=== PATIENT | male | born 1990 | race Two or more races ===

== ENCOUNTER 2021-05-31 14:31 | Inpatient (IN) | payer MEDICAID, OTHER ==
[~2021-05-31] VITALS: Ht 175.3 cm; Wt 102.1 kg
[~2021-05-31 14:31] MED LIST: HYDR-4354; QUET25TA PO; TRAZ-252 PO
--- NOTE | 2021-05-31 14:50 | NUR ---
BIB RA 839 FROM [facility] AFTER HE SWALLOWED THE HANDLE OF A PLASTIC SPOON 35 MINUTES, HE IS AN IN-PATIENT. THE PATIENT RATES ABDOMINAL PAIN 5/10. ABDOMEN NON-DISTENDED. IN ROOM AIR AND DENIES SOB. RESPIRATION REGULAR AND UNLABORED. WILL CONTINUE TO MONITOR THE PATIENT.
[2021-05-31] MEDS ORDERED: IV NS 0.9% 1,000 ML BAG IV ONE (15:00)
[2021-05-31] MEDS ORDERED: ONDANSETRON HCL/PF 4 MG/2 ML VIAL IV ONE (15:00)
[2021-05-31] MEDS ORDERED: ONDANSETRON HCL/PF 4 MG/2 ML VIAL ONE (15:02)
[2021-05-31 15:18] LABS: BASOPHILS # (AUTO) 0.1 K/uL (0.0-0.2); BASOPHILS % (AUTO) 0.7 % (0.0-2.0); HEMATOCRIT 42 % (39-51); HEMOGLOBIN 13.9 g/dL (13.5-17.5); LYMPHOCYTES # (AUTO) 2.2 K/uL (0.8-4.8); LYMPHOCYTES % (AUTO) 23.7 % (20.0-44.0); MEAN CORPUSCULAR HGB CONC 33 g/dl (31.0-36.0); MEAN CORPUSCULAR VOLUME 91 fL (80-96); MONOCYTES % (AUTO) 10.6 % (2.0-12.0); NEUTROPHILS # (AUTO) 5.8 K/uL (1.8-8.9); PLATELET COUNT (AUTO) 347 K/uL (150-450); RED BLOOD CELL COUNT(AUTO) 4.65 MIL/uL (4.5-6.0); WHITE BLOOD COUNT (AUTO) 9.2 K/uL (4.3-11.0)
[2021-05-31] MEDS ORDERED: ZIPR40CA2 PO (15:21)
[2021-05-31] MEDS ORDERED: DIVA-78 PO (15:21)
[2021-05-31] MEDS ORDERED: BUSP5TAB3 PO (15:21)
[2021-05-31] MEDS ORDERED: ALPR2TAB2 PO (15:21)
[2021-05-31] MEDS ORDERED: WELLBUTRIN (15:21)
[2021-05-31 15:40] LABS: CALCIUM, SERUM 8.8 mg/dL (8.5-10.1); CREATININE 0.7 mg/dL (0.6-1.3); POTASSIUM 4.5 mmol/L (3.5-5.1)
[2021-05-31] MEDS ORDERED: IOHEXOL-300 100 ML VIAL IV ONE (15:51)
[2021-05-31] MEDS ORDERED: IV NS 0.9% 250 ML IV ONE (15:51)
--- NOTE | 2021-05-31 15:55 | NUR ---
MOVE SHEET SUBMITTED AND CALLED FOR BED.
--- NOTE | 2021-05-31 17:03 | NUR ---
[facility] CALLED ICER HAND PAGED.
[2021-05-31] MEDS ORDERED: ONDANSETRON HCL/PF 4 MG/2 ML VIAL IVP PRN (19:30)
--- NOTE | 2021-05-31 20:04 | NUR ---
TELE 102
--- NOTE | 2021-05-31 20:11 | NUR ---
REPORT GIVEN TO TANYA BRAVO FOR ALIE
--- NOTE | 2021-05-31 20:46 | NUR ---
PT TRANSFERED PER ACLS PROTOCOL
[2021-05-31 20:54] VITALS: BP 124/66
--- NOTE | 2021-05-31 21:00 | NUR ---
ADMISSION 31 Y/O male admitted for Foreign body, patient is A/O x4. Skin checked done, skin intact, patient with healed tattoo in his right leg, right arm and right side of his face. Oriented to room, unit, staff. Admission process completed. Patient with mental concern, states voices telling him to hurt himself and others with sharp objects. Safety precaution initiated, sitter at bedside, environmental room safety checked. Psych and social media marketing specialist/service consult placed.
[2021-05-31] MEDS: IV D5/0.45 NACL 1,000 ML IV PRN (21:37)
[2021-06-01] VITALS: BP 134/64
[2021-06-01 04:00] VITALS: BP 125/69
--- NOTE | 2021-06-01 04:22 | NUR ---
CONSENT EGD Patient consented procedure EGD. Procedure check list completed.
[2021-06-01 04:39] LABS: BASOPHILS # (AUTO) 0.1 K/uL (0.0-0.2); BASOPHILS % (AUTO) 0.7 % (0.0-2.0); EOSINOPHILS % (AUTO) 3.5 % (0.0-6.0); HEMATOCRIT 41 % (39-51); HEMOGLOBIN 13.8 g/dL (13.5-17.5); LYMPHOCYTES # (AUTO) 1.9 K/uL (0.8-4.8); LYMPHOCYTES % (AUTO) 26.1 % (20.0-44.0); MEAN CORPUSCULAR HGB CONC 34 g/dl (31.0-36.0); MEAN CORPUSCULAR VOLUME 91 fL (80-96); MONOCYTES # (AUTO) 0.8 K/uL (0.1-1.30); MONOCYTES % (AUTO) 11.8 % (2.0-12.0); NEUTROPHILS # (AUTO) 4.1 K/uL (1.8-8.9); NEUTROPHILS % (AUTO) 57.9 % (43.0-81.0); PLATELET COUNT (AUTO) 319 K/uL (150-450); RED BLOOD CELL COUNT(AUTO) 4.51 MIL/uL (4.5-6.0); WHITE BLOOD COUNT (AUTO) 7.1 K/uL (4.3-11.0)
[2021-06-01] MEDS ORDERED: ANESTHESIA TRAY IN PYXIS 1 EA TRAY MC ONE (04:40)
--- NOTE | 2021-06-01 04:42 | NUR ---
OFF UNIT Patient to OR for procedure EGD, transferred by bed.
[2021-06-01] MEDS ORDERED: SUCCINYLCHOLINE CHLORIDE 20 MG/ML VIAL ONE (04:57)
[2021-06-01 04:58] LABS: CALCIUM, SERUM 8.5 mg/dL (8.5-10.1); CREATININE 0.8 mg/dL (0.6-1.3); MAGNESIUM 2.1 mg/dL (1.8-2.4); PHOSPHORUS 3.2 mg/dL (2.5-4.9); POTASSIUM 4.3 mmol/L (3.5-5.1)
[2021-06-01] MEDS ORDERED: MENTHOL/CETYLPYRD (CEPACOL) 1 LOZ LOZENGE ONE (06:01)
[2021-06-01 06:28] VITALS: BP 130/86
--- NOTE | 2021-06-01 06:50 | NUR ---
END OF SHIFT REPORT Patient s/p EGD. Remains NPO. Ongoing IVF. Plan for KUB. Patient with active suicidal thoughts, continue with sitter, frequent environmental room checked. Psyche consult and social media marketer consult.
[2021-06-01 06:55] VITALS: BP 124/80
--- NOTE | 2021-06-01 07:10 | NUR ---
MS RN OPENING NOTE RECEIVED PATIENT RESTING IN BED. PATIENT IS A/O X4. PATIENT IS BREATHING EVENLY AND NONLABORED ON ROOM AIR. PATIENT IS NOT IN ANY ACUTE DISTRESS. PATIENT DOES NOT COMPLAIN OF PAIN AT THIS TIME. PATIENT HAS IV ACCESS ON RAC # 18 GAUGE RUNNING D5 1/2 NS @ 75 ML/HR. PATENT AND INTACT. SAFETY MEASURES ARE IN PLACE, BED LOW LOCKED CALL LIGHT WITHIN REACH, SIDE RAILS UP, SITTER AT BEDSIDE DUE TO SI. WILL CONTINUE TO MONITOR
--- NOTE | 2021-06-01 08:08 | NUR ---
RN NOTE PATIENT COMPLAINED OF PAIN, MD AT BEDSIDE, GAVE NEW ORDER FOR MORPHINE 2MG Q4HRS PRN FOR SEVERE PAIN. WILL GIVE PRN PAIN MEDICATION. CONTINUE TO MONITOR
[2021-06-01] MEDS: MORPHINE SULFATE INJ 2 MG/ML DISP.SYRIN IV PRN ×4 (08:30→21:43)
[2021-06-01 08:52] VITALS: BP 124/80
[2021-06-01] MEDS: LORAZEPAM INJ 2 MG/ML VIAL IV PRN ×2 (09:17→15:21)
--- NOTE | 2021-06-01 09:21 | NUR ---
RN NOTE PATIENT COMPLAINED OF SEVERE ANXIETY AND HEARING VOICES, PATIENT ASKED FOR PRN ANTIANXIETY MEDICATION, PRN MEDICATION GIVEN. VITALS WNL. WILL CONTINUE TO MONITOR
[2021-06-01 10:23] LABS: ALBUMIN 3.4 g/dL (3.4-5.0); BILIRUBIN,DIRECT 0.1 mg/dL (0.0-0.2); BILIRUBIN,TOTAL 0.4 mg/dL (0.2-1.0); TOTAL PROTEIN, SERUM 6.5 g/dL (6.4-8.2)
--- NOTE | 2021-06-01 11:11 | NUR ---
Clinical Social Work Note Pt has a history of mental illness with stimulant dependence ( methamphetamines) and other polysubstancce abuse. He swallowed a spoon while intoxicated and the circumstances are not veery clear at the time. Patient does require surgery to remove the foreign body ( spoon). Patient is well known to [facility] ) but is far from medically stable for transfer there. Will reevaluate placement when patient is more stable.
[2021-06-01] MEDS: VALPROATE 250 MG in IV D5W 100 ML IV SCH ×3 (11:20→21:26)
[2021-06-01] MEDS: IV D5/0.45 NACL 1,000 ML IV PRN (11:34)
--- NOTE | 2021-06-01 15:15 | NUR ---
RN NOTE PATIENT COMPLAINED OF SEVERE ANXIETY AND HEARING VOICES, PATIENT ASKED FOR PRN ANTIANXIETY MEDICATION, PRN MEDICATION GIVEN. VITALS WNL. WILL CONTINUE TO MONITOR
--- NOTE | 2021-06-01 17:13 | NUR ---
RN NOTE PATIENT COMPLAINED OF SEVERE PAIN, VITALS WNL WILL GIVE PRN PAIN MEDICATION. CONTINUE TO MONITOR
--- NOTE | 2021-06-01 18:24 | NUR ---
MD DO RESIDENT URGENT CARE CLOSING NOTE PATIENT RESTING IN BED. PATIENT IS A/O X4. PATIENT IS BREATHING EVENLY AND NONLABORED ON ROOM AIR. PATIENT IS NOT IN ANY ACUTE DISTRESS. PATIENT DOES NOT COMPLAIN OF PAIN AT THIS TIME. PATIENT HAS IV ACCESS ON RAC # 18 GAUGE RUNNING D5 1/2 NS @ 75 ML/HR. PATENT AND INTACT. ALL MEDICATIONS GIVEN ORDERED. SAFETY MEASURES ARE IN PLACE, BED LOW LOCKED CALL LIGHT WITHIN REACH, SIDE RAILS UP, SITTER AT BEDSIDE DUE TO SI. WILL ENDORSE TO ONCOMING SHIFT
--- NOTE | 2021-06-01 19:35 | NUR ---
RN OPENING NOTES: RECEIVED PT A/OX4 IN BED RESTING COMFORTABLY. PATIENT IN NO S/SX OF ACUTE DISTRESS AT THIS TIME. NO SOB NOTED. PATIENT'S BREATHING IS EVEN AND UNLABORED. PATIENT IS ON ROOM AIR; TOLERATING WELL. WITH SITTER AT BEDSIDE. PATIENT ON TELE MONITORING READING SINUS RHYTHM HR IS @70s AT THE TIME OF RECEIVED. PATIENT ON REGULAR DIET; TOLERATES WELL. NOTED IV SITE ON R AC# 18; PATENT, INTACT AND FLUSHING WELL; NO S/S OF INFECTION OR INFILTRATION. WITH IV FLUIDS RUNNING ORDERED. SAFETY MEASURES HAVE BEEN PROVIDED AND IMPLEMENTED. PATIENT BED ALARM IS ON. HEAD OF BED ELEVATED. BED IS LOCKED, IN LOWEST POSITION AND SIDE RAILS UP. CALL LIGHT WITHIN REACH OF THE PATIENT. APPLICABLE ISOLATION PRECAUTIONS IN PLACE. WILL CONTINUE TO MONITOR AND REASSESS FOR ANY CHANGES AND WILL CARRY OUT ANY ONGOING AND ACTIVE MD ORDER.
[2021-06-01 20:00] VITALS: BP 130/72
[2021-06-02] VITALS (7 sets, daily range): BP systolic 110–119; BP diastolic 59–71
--- NOTE | 2021-06-02 | NUR ---
RN NOTES PATIENT REMAINED TO BE IN NO SIGNS OF ACUTE RESPIRATORY DISTRESS , VITAL SIGNS WNL AT THIS TIME. CONTROLLED AREA CHECKER MADE AWARE. WILL CONTINUE TO MONITOR AND REASSESS FOR ANY CHANGES THROUGHOUT THE SHIFT.
[2021-06-02] MEDS: LORAZEPAM INJ 2 MG/ML VIAL IV PRN ×2 (01:30→09:27)
--- NOTE | 2021-06-02 04:00 | NUR ---
RN NOTES NO NOTED CHANGES IN PATIENT CONDITION AT THIS TIME; PATIENT VITALS STABLE, NO SIGNS OF ACUTE RESPIRATORY DISTRESS. AM PATIENT CARE RENDERED. WILL CONTINUE TO MONITOR AND REASSESS FOR ANY CHANGES THROUGHOUT THE SHIFT.
[2021-06-02] MEDS: MORPHINE SULFATE INJ 2 MG/ML DISP.SYRIN IV PRN ×4 (04:03→23:11)
[2021-06-02] MEDS: VALPROATE 250 MG in IV D5W 100 ML IV SCH ×2 (04:03→13:35)
[2021-06-02] MEDS: IV D5/0.45 NACL 1,000 ML IV PRN ×2 (05:00→19:03)
--- NOTE | 2021-06-02 06:50 | NUR ---
RN CLOSING NOTE: PATIENT REMAINS IN ROOM IN NO SIGNS OF RESPIRATORY DISTRESS, PATIENT STILL ON ROOM AIR; TOLERATING WELL SATURATING @ >95% SP02. SAFETY MEASURES IMPLEMENTED, BED IN LOWEST POSITION, LOCKED, SIDE RAILS UP, CALL LIGHT WITHIN REACH. ALL NEEDS AND ORDERS ADDRESSED DURING THE SHIFT. IV ACCESS MAINTAINED INTACT, SECURED AND FLUSHING WELL. PATIENT KEPT CLEAN AND COMFORTABLE WITHIN THE SHIFT. PATIENT ENDORSED TO INCOMING SHIFT RN WITH STABLE VITAL SIGN AND FOR CONTINUITY OF CARE.
--- NOTE | 2021-06-02 07:15 | NUR ---
RN NOTE PATIENT OBSERVED IN BED, AWAKE AND ORIENTED X3, ON ROOM AIR BREATHING EVEN AND UNLABORED, WITH ONE ON ONE OBSERVATION, DX OF SWALLOWING FOREIGN OBJECT, WILL CLOSELY MONITOR PATIENT, IV ON RIGHT AC PATENT INFUSING WELL, NPO AT THIS TIME. SAFETY MEASURES OBSERVED, CALL LIGHT WITHIN REACH BED WHEELS LOCK, WILL CONTINUE TO MONITOR.
[2021-06-02] MEDS ORDERED: PEG 3350/NA SULF,BICARB,CL/KCL 4,000 ML BOTTLE PO ONE (08:30)
--- NOTE | 2021-06-02 11:00 | NUR ---
RN NOTE SEEN AND EVALUATED BY DR. GALLARDO, START ON CLEAR LIQUID DIET , PO MEDICATION OK AT THIS TIME, UPDATED MD REGARDING PATIENT CURRENT CONDITION.
--- NOTE | 2021-06-02 11:30 | NUR ---
RN NOTE START ON GLYOTEL PER DR. MELGAR.
[2021-06-02] MEDS: OLANZAPINE 5 MG TABLET PO SCH ×2 (16:07→20:33)
[2021-06-02] MEDS: DIVALPROEX SODIUM 500 MG TABLET.DR PO SCH (16:07)
--- NOTE | 2021-06-02 16:30 | NUR ---
RN NOTE SEEN BY DR. FAMILIA MD ORDERS NOTED AND CARRIED OUT.
--- NOTE | 2021-06-02 19:05 | NUR ---
RN NOTE PATIENT OBSERVED IN BED, AWAKE AND ORIENTED X3, ON ROOM AIR BREATHING EVEN AND UNLABORED, WITH ONE ON ONE OBSERVATION, DX OF SWALLOWING FOREIGN OBJECT, WILL CLOSELY MONITOR PATIENT, IV ON RIGHT AC D5 1/2 @75CC/HR PATENT INFUSING WELL, CLEAR LIQUID DIET AT THIS TIME, ON GOLYTEL ORDERED. SAFETY MEASURES OBSERVED, CALL LIGHT WITHIN REACH BED WHEELS LOCK, WILL CONTINUE TO MONITOR.
--- NOTE | 2021-06-02 19:06 | NUR ---
RN NOTE ON TELE MONITOR SR OF 71.
--- NOTE | 2021-06-02 20:00 | NUR ---
CHISELER HEAD NOTE PT IN BED AWAKE. A/O X 3, NO SOB NO DISTRESS OR DISCOMFORT NOTED. PT ON CLEAR LIQUIDS. REMINDED PT TO DRINK GOLYTELY. PER PT HE DRANK 5 -6 CUPS AND WANTS TO SLEEP NOW WILL DRINK IN THE MORNING DUE TO KEPT ON GOING TO RESTROOM. ON TELE SR 64. IVF D5 1/2 NS INFUSING AT 75 ML/HR, NO S/S OF INFILTRATION NOTED. KEPT HIM DRY AND CLEAN. ALL NEEDS ATTENDED. VSS. CONTINUE TO MONITOR.
[2021-06-03] VITALS: BP 112/67
[2021-06-03] MEDS: LORAZEPAM INJ 2 MG/ML VIAL IV PRN ×2 (03:10→11:15)
--- NOTE | 2021-06-03 03:11 | NUR ---
CAR TOP BOLTER NOTE PT WOKE UP C/O ANXIETY. ATIVAN 0.5 MG IVP GIVEN. CONTINUE TO MONITOR HIM.
--- NOTE | 2021-06-03 03:41 | NUR ---
TELEVISION CAMERAMAN NOTE ANXIETY SUBSIDED. PT FALLING ASLEEP. SITTER 1;1
[2021-06-03 04:00] VITALS: BP 124/67
[2021-06-03] MEDS: MORPHINE SULFATE INJ 2 MG/ML DISP.SYRIN IV PRN ×2 (05:33→19:49)
--- NOTE | 2021-06-03 05:40 | NUR ---
TAILOR APPRENTICE NOTE PT WOKE UP C/O PAIN ALL OVER 8/10, MORPHINE SULFATE 2 MG IVP GIVEN. IVF INFUSING WELL, NO S/S OF INFILTRATION NOTED.
[2021-06-03] MEDS: OLANZAPINE 5 MG TABLET PO PRN ×2 (05:59→11:15)
--- NOTE | 2021-06-03 06:00 | NUR ---
TOPOGRAPHIC COMPUTATOR NOTE PT IN BED, STATES "I HEARING VOICES", ZYPREXA 5 MG PO GIVEN. CONTINUE TO MONITOR HIM.
--- NOTE | 2021-06-03 06:10 | NUR ---
ECOLOGICAL TECHNICAL OFFICER NOTE PT IN BED, AWAKE. PAIN SUBSIDED. 11/15, IVF INFUSING WELL.
--- NOTE | 2021-06-03 06:43 | NUR ---
SHIFT MGR NOTE PT IN BED ASLEEP, EASILY AROUSABLE. NO DISTRESS OR DISCOMFORT NOTED. DENIES PAIN. IVF INFUSING WELL. NO S/S OF INFILTRATION NOTED. ON TELE SR . PT STILL DRINKING GOLYTELY. PT UNABLE TO SEE IF HE PASSED ANY FOREIGN BODY IN A STOOL. SIDE RAILS UP X 2 AND CALL LIGHT WITHIN REACH. WILL ENDORSE TO DAY SHIFT NURSE FOR CONTINUE TO CARE.
[2021-06-03 08:00] VITALS: BP 124/67
[2021-06-03] MEDS: OLANZAPINE 5 MG TABLET PO SCH ×2 (08:16→13:51)
[2021-06-03] MEDS: DIVALPROEX SODIUM 500 MG TABLET.DR PO SCH ×2 (08:16→17:10)
--- NOTE | 2021-06-03 09:11 | NUR ---
RN NOTE PATIENT OBSERVED IN BED, AWAKE AND ORIENTED X3, ON ROOM AIR BREATHING EVEN AND UNLABORED WITH ONE ON ONE OBSERVATION, DX OF SWALLOWING FOREIGN OBJECT, STATED THAT PATIENT IS HEARING VOICES, WILL CLOSELY MONITOR PATIENT, IV ON RIGHT AC PATENT INFUSING ON CLEAR LIQUID DIET, PATIENT TAKING GOLYTELY. SAFETY MEASURES OBSERVED, CALL LIGHT WITHIN REACH BED WHEELS LOCK, WILL CONTINUE TO MONITOR.
[2021-06-03] MEDS: IV D5/0.45 NACL 1,000 ML IV PRN ×2 (09:46→18:28)
[2021-06-03 12:00] VITALS: BP 122/60
--- NOTE | 2021-06-03 12:30 | NUR ---
RN NOTE NOTIFIED DR JOSE J CARPENTER THAT PATIENT IS HEARING VOICES AND THREATENS TO HURT HIMSELF, NOTIFIED DR. BARBOSA ORDERED, DR. BARBOSA CONSULTED THE PATIENT VIA FACETIME INCREASE DOSE AND DEPAKOTE, ORDERS NOTED AND CARRIED OUT.
--- NOTE | 2021-06-03 12:41 | NUR ---
RN NOTE PATIENT TO START ON REGULAR DIET PER ROLANDA CARPENTER,CONTINUE TO MONITOR FOR ABDOMINAL PAIN. NO ABDOMINAL PAIN COMPLAINS AT THIS TIME.
[2021-06-03 16:00] VITALS: BP 122/60
[2021-06-03] MEDS ORDERED: DIVALPROEX SODIUM 500 MG TABLET.DR PO ONE (17:30)
--- NOTE | 2021-06-03 18:42 | NUR ---
RN NOTE PATIENT OBSERVED IN BED, AWAKE AND ORIENTED X3, ON ROOM AIR BREATHING EVEN AND UNLABORED WITH ONE ON ONE OBSERVATION, DX OF SWALLOWING FOREIGN OBJECT, STATED THAT PATIENT IS HEARING VOICES, WILL CLOSELY MONITOR PATIENT, IV ON RIGHT HAND PATENT INFUSING D5 1/2 NS @100CC/HR ON REGULAR DIET TOLERATING WELL NO ABDOMINAL PAIN COMPLAINS AT THIS TIME, SP ROXY. SAFETY MEASURES OBSERVED, CALL LIGHT WITHIN REACH BED WHEELS LOCK, WILL CONTINUE TO MONITOR. WILL ENDORSE TO NOC SHIFT. Addendum: 06/03/21 at 1849 by STEVE NAIR RN RN NOTE PATIENT OBSERVED IN BED, AWAKE AND ORIENTED X3, ON ROOM AIR BREATHING EVEN AND UNLABORED WITH ONE ON ONE OBSERVATION, DX OF SWALLOWING FOREIGN OBJECT, STATED THAT PATIENT IS HEARING VOICES, WILL CLOSELY MONITOR PATIENT, IV ON RIGHT HAND PATENT INFUSING D5 1/2 NS @100CC/HR ON REGULAR DIET TOLERATING WELL NO ABDOMINAL PAIN COMPLAINS AT THIS TIME, ON TELE MONITOR SR HR OF 71. S/P ROXY. SAFETY MEASURES OBSERVED, CALL LIGHT WITHIN REACH BED WHEELS LOCK, WILL CONTINUE TO MONITOR. WILL ENDORSE TO NOC SHIFT.
[2021-06-03] MEDS: OLANZAPINE 10 MG TABLET PO SCH (19:48)
[2021-06-03 20:00] VITALS: BP 116/67
[2021-06-04] VITALS: BP 115/66
[2021-06-04] MEDS: LORAZEPAM INJ 2 MG/ML VIAL IV PRN ×2 (02:49→10:21)
[2021-06-04 04:00] VITALS: BP 138/71
[2021-06-04] MEDS: MORPHINE SULFATE INJ 2 MG/ML DISP.SYRIN IV PRN ×4 (05:26→18:55)
[2021-06-04 06:49] LABS: BASOPHILS % (AUTO) 0.6 % (0.0-2.0); EOSINOPHILS % (AUTO) 2.9 % (0.0-6.0); HEMATOCRIT 45 % (39-51); HEMOGLOBIN 14.7 g/dL (13.5-17.5); LYMPHOCYTES # (AUTO) 1.6 K/uL (0.8-4.8); LYMPHOCYTES % (AUTO) 30.3 % (20.0-44.0); MEAN CORPUSCULAR HGB CONC 33 g/dl (31.0-36.0); MEAN CORPUSCULAR VOLUME 92 fL (80-96); MONOCYTES % (AUTO) 19.3 % (2.0-12.0); NEUTROPHILS # (AUTO) 2.4 K/uL (1.8-8.9); NEUTROPHILS % (AUTO) 46.9 % (43.0-81.0); PLATELET COUNT (AUTO) 267 K/uL (150-450); WHITE BLOOD COUNT (AUTO) 5.2 K/uL (4.3-11.0)
--- NOTE | 2021-06-04 06:50 | NUR ---
Patient has been A&Ox4. VSS. Sitter at bedside. Denies abdominal pain but c/o generalized pain relieved by PRN [place]. C/o anxiety x1 relieved by PRN Ativan. At 0600 patient says he starts hearing voices telling him that he and his family are going to then starts accusing sitter of calling him "liu liu" sitter says he does not even know what that means and never called him that. Nurse trying to reassure patient that sitter was just watching him and did not say anything. Patient calm, down tem,porarily but then requested to have a different sitter. Endorsed to next shift.
[2021-06-04 07:36] LABS: CALCIUM, SERUM 9.2 mg/dL (8.5-10.1); CREATININE 0.7 mg/dL (0.6-1.3); MAGNESIUM 1.9 mg/dL (1.8-2.4); PHOSPHORUS 2.5 mg/dL (2.5-4.9)
[2021-06-04] MEDS: OLANZAPINE 5 MG TABLET PO SCH ×2 (07:46→12:27)
[2021-06-04] MEDS: DIVALPROEX SODIUM 500 MG TABLET.DR PO SCH (07:46)
[2021-06-04 08:00] VITALS: BP 133/82
[2021-06-04 09:42] LABS: BAND % (MANUAL) 2 % (0.0-5.0); EOSINOPHILS % (MANUAL) 4 % (0-4); LYMPHOCYTES % (MANUAL) 30 % (16-48); MONOCYTES % (MANUAL) 18 % (0-11.0); NEUTROPHILS % (MANUAL) 46 (42-76)
--- NOTE | 2021-06-04 11:45 | NUR ---
SS consult: SS consult requested for homelessness and substance use. Pt is a 31-year-old, male. SW met with pt at his bedside in the med-surg unit. Pt presented with a depressed mood and anxious affect. Pt was alert and oriented x4. Pt appeared ambulatory with a steady gait. Pt stated that he is currently homeless and has been homeless for the last month. Pt stated that he was recently at [facility], [place]. Pt requested voluntary psychiatric admission to [facility], for suicidal ideation. Pt stated that he had "smashed" his head into the wall. Pt stated that he has a plan to take a sharp object to the restroom and cut his wrists. Pt denied homicidal ideation. Pt stated that he currently has no source of income or social support. Pt stated that he has a hx of substance use which includes, methamphetamine, cannabis, and alcohol. Pt stated that he uses these substances on a weekly basis. Pt reported a hx of Bipolar II Disorder and Depression. Pt reported that he is currently taking, Depakote, Zyprexa, and Wellbutrin. Pt reported that he has a hx of paranoid thoughts. Pt denied hallucinations. SW offered the pt mental health, substance use, and homeless resources. Pt accepted the resources and thanked SW. Pt signed the homeless waiver and SW filed the waiver in the pt's chart. Pt requested voluntary psychiatric admission to [facility]. SW will fax clinicals to [facility], , for review. PLAN: Pt requested voluntary psychiatric admission to [facility]. SW will fax clinicals to [facility], , for review. RESOURCES: Year-round shelters: [facility] [address] [place] [address] ; [facility] [place] [address]; [facility] [id number] [facility]. [facility] [address] SPA 4 | [facility] [place] Provider: First to Serve Address: [address], [address] # of Beds: 48 Population Served: [facility] Provider: First to Serve Address: [address] [place] [address], [address] # of Beds: 73 Population Served: [place] SPA 6 | [facility] Provider: [facility]: [address] [facility], [address] # of Beds: 63 Population Served: [place] SPA 3 | [facility] Provider: [facility] [place] Address: [address] [facility], [address] # of Beds: 75 Population Served: [place] SPA 8 | [facility] Provider: [facility] [place] Address: [address] [facility], [address] # of Beds: 80 Population Served: [place] SPA 1 | [facility] Provider: [facility] [place] Address: [address] [place] [address], [address] # of Beds: 85 Population Served: [facility] | [facility] Provider: [facility] Address: Confidential (please call for location) # of Beds: 52 Population Served: [facility] 4 | [facility] Provider: [facility] Address: [address] [facility], [address] # of Beds: 49 Population Served: [facility] Provider: First To Serve Address: [address] [place] [address], [address] # of Beds: 27 Population Served: [place] Hygiene: [facility]: [address] [address] [place]annan ; [facility] [address] [facility] ; [facility] [address] . Food Resources: [place] [facility] at [facility]- [address] [place]; Meet Each Need with [facility] ([facility]) [address] [facility]; [facility] [address] [facility]; [facility] [address] [place] [facility] [place]. Mental Health resources provided: [facility] [address] [place], [place] [address] ; [facility] [address] [facility] [address], [place] [address] ; [facility] [address] [facility] [place], [place] [id number] ; [facility] [address] [place], [place] [address] Healthcare Clinics: [facility] [address] [facility], [address] [place]. [place] ; [facility] [address] [place] [address] [facility] [address] [facility] [place] [address] [phone] Counseling--Outpatient [facility] [address], [address] [place], [place] [phone] (Specializes in in-depth psychotherapy for emotional distress: anxiety, depression, interpersonal conflicts, life transitions, childhood abuse) PSYCHIATRIC OUTPATIENT SERVICES [facility] Partial Hospitalization and Intensive Outpatient Program (Managed Care and [place] Only) [address] [facility] [id number] [facility] Partial Hospitalization and Outpatient Program [address] [address] [facility]. [address] [place], [place] [id number] [facility] Partial Hospitalization and Outpatient Program [address] [facility]. [place], [place] [phone] [facility] [address] [facility]. [address] [place], [place] [address] [facility] Partial Hospitalization and Outpatient Program [address] [place], [place] [phone] Substance use resources provided included: [place] [facility] Abuse Self-Helpline (SAS) ; [facility] [address] [facility] 915951 ; [facility] [address] [facility] [address] ; [facility] [address] [facility] [phone] ; [facility] [address] [facility] [address] ; [facility] [address] [facility] [phone] ; [facility] [place]; [facility] [place]; [place]; Alcoholics Anonymous -[facility]
--- NOTE | 2021-06-04 11:50 | NUR ---
SS note: ARCADIO faxed clinicals to [facility], , for review.
[2021-06-04 12:00] VITALS: BP 127/79
--- NOTE | 2021-06-04 14:27 | NUR ---
RN NOTE PATIENT SEEN BY DR. BARBOSA, NO NEW ORDERS AT THIS TIME.
--- NOTE | 2021-06-04 15:18 | NUR ---
RN NOTE NOTIFIED DR. BARBOSA THAT PATIENT WANT TO START TAKING WELLBUTRIN, MD SAID NO, NOTIFIED DR TUNDE CARPENTER REGARDING CURRENT SITUATION THAT PATIENT WANTS TO LEAVE AGAINS MEDICAL ADVICE BECAUSE HE IS NOT BEING MEDICATED, PATIENT REFUSED TO SIGN AMA AND WANTS TO COOPERATED AND BE TREATED HERE. DR. HARSHA CARPENTER AND DR. BARBOSA MADE AWARE.
[2021-06-04 16:00] VITALS: BP 132/81
[2021-06-04] MEDS: OLANZAPINE 5 MG TABLET PO PRN (16:36)
[2021-06-04] MEDS ORDERED: DIVALPROEX SODIUM 500 MG TABLET.DR PO SCH (17:00)
--- NOTE | 2021-06-04 19:02 | NUR ---
RN NOTE PATIENT VTS WNL AWAKE AND ORIENTED, ON CLOSE MONITORING SAFETY MEASURES OBSERVED, CALL LIGHT WITHIN REACH, WILL CONTINUE TO MONITOR WILL ENDORSE TO NOC SHIFT.
--- NOTE | 2021-06-04 19:38 | NUR ---
MS RN NOTE PT IN BED ASLEEP, AROUSABLE. DENIES PAIN, A/O X 3, NO SOB, NO DISTRESS OR DISCOMFORT NOTED. SL LT HAND #22 G. INTACT AND PATENT. NO PSYCH BEHAVIOR NOTED AT THIS TIME. SIDE RAILS UP X 2 AND CALL LIGHT WITHIN REACH. VSS. CONTINUE TO MONITOR HIM.
--- NOTE | 2021-06-04 19:47 | NUR ---
FORKLIFT DRIVER NOTE PT ON TELE MONITOR SR 90.
[2021-06-04 20:00] VITALS: BP 107/59
[2021-06-04] MEDS: OLANZAPINE 10 MG TABLET PO SCH (20:51)
[2021-06-05] VITALS: BP 110/57
[2021-06-05 04:00] VITALS: BP 129/59
--- NOTE | 2021-06-05 04:37 | NUR ---
MS RN NOTE PT PULLED OUT SL FROM LT HAND ACCIDENTLY, NO BLEEDING NOTED. REFUSING TO REINSERT NEW ONE AT THIS TIME. WILL TRY LATER. SNACKS GIVEN PER PT'S REQUEST. CONTINUE TO MONITOR
--- NOTE | 2021-06-05 06:33 | NUR ---
MS RN NOTE PT IN BED DROWSY, NO DISTRESS OR DISCOMFORT NOTED. DENIES PAIN. ALL NEEDS ATTENDED. ON TELE MONITOR SR 80. WILL ENDORSE TO DAY SHIFT NURSE FOR CONTINUE TO CARE.
[2021-06-05 06:51] LABS: BASOPHILS % (AUTO) 0.5 % (0.0-2.0); EOSINOPHILS % (AUTO) 3.8 % (0.0-6.0); HEMATOCRIT 43 % (39-51); HEMOGLOBIN 13.8 g/dL (13.5-17.5); LYMPHOCYTES # (AUTO) 1.6 K/uL (0.8-4.8); LYMPHOCYTES % (AUTO) 28.8 % (20.0-44.0); MEAN CORPUSCULAR HGB CONC 32 g/dl (31.0-36.0); MEAN CORPUSCULAR VOLUME 92 fL (80-96); MONOCYTES % (AUTO) 17.9 % (2.0-12.0); NEUTROPHILS # (AUTO) 2.8 K/uL (1.8-8.9); PLATELET COUNT (AUTO) 270 K/uL (150-450); RED BLOOD CELL COUNT(AUTO) 4.66 MIL/uL (4.5-6.0); WHITE BLOOD COUNT (AUTO) 5.7 K/uL (4.3-11.0)
[2021-06-05] MEDS: OLANZAPINE 5 MG TABLET PO SCH ×2 (07:41→12:08)
[2021-06-05 07:50] LABS: ALBUMIN 3.3 g/dL (3.4-5.0); BILIRUBIN,TOTAL 0.3 mg/dL (0.2-1.0); CALCIUM, SERUM 8.7 mg/dL (8.5-10.1); CREATININE 0.9 mg/dL (0.6-1.3); POTASSIUM 4.1 mmol/L (3.5-5.1); TOTAL PROTEIN, SERUM 6.9 g/dL (6.4-8.2)
[2021-06-05 08:00] VITALS: BP 130/75
[2021-06-05] MEDS: DIVALPROEX SODIUM 500 MG TABLET.DR PO SCH (08:00)
--- NOTE | 2021-06-05 08:00 | NUR ---
telephone lineman note patient in bed ,alert oriented ,new hl on lt ac susanne 22 inserted with good blood return, able to eat breakfast, all needs attended ,morphine for general pain given as ordered, will cont to monitor closely
[2021-06-05] MEDS: MORPHINE SULFATE INJ 2 MG/ML DISP.SYRIN IV PRN ×3 (08:07→15:55)
[2021-06-05] MEDS: LORAZEPAM INJ 2 MG/ML VIAL IV PRN ×2 (09:48→15:48)
[2021-06-05 09:59] LABS: EOSINOPHILS % (MANUAL) 2 % (0-4); LYMPHOCYTES % (MANUAL) 33 % (16-48); MONOCYTES % (MANUAL) 12 % (0-11.0); NEUTROPHILS % (MANUAL) 53 (42-76)
--- NOTE | 2021-06-05 10:17 | NUR ---
[facility] Referral: ARCADIO refaxed clinicals to [facility] FAX:[phone] TEL: [phone] for continuation of psychiatric care. ARCADIO will follow up as needed.
--- NOTE | 2021-06-05 12:19 | NUR ---
D/C PLANNING: ARCADIO received call from [facility] Intake requesting chest x rays. SW faxed xrays to [facility].
[2021-06-05] MEDS: OLANZAPINE 5 MG TABLET PO PRN (13:53)
--- NOTE | 2021-06-05 13:55 | NUR ---
MS RN NOTE AGITATED AND ANXIETY ZYPREXA PO GIVEN WILL F\U
--- NOTE | 2021-06-05 15:25 | NUR ---
telephone directory deliverer note per Dale white to discharge report given to facility by Anneliese hurtado to ishaan hurtado
[2021-06-05 16:00] VITALS: BP 140/87
--- NOTE | 2021-06-05 16:09 | NUR ---
ms rn note ambulance arrived , report given hl removed , went to snf with stable condition belonging taken by patient
== END 2021-06-05 16:24 | DRG 254 ==
LOC: ER 14:49 → MEDSG1 20:40 → TELE1 20:59 → MEDSG1 06-05 08:40
PROVIDERS: ADMIT Internal Medicine; ATTEND Nurse Practitioner Acute Care
PROC: 0DJ08ZZ Inspection of Upper Intestinal Tract, Via Natural or Artificial Opening Endoscopic (ICD-10-PCS; principal; 2021-06-01)
DX: T18.2XXA Foreign body in stomach, initial encounter (principal); F25.9 Schizoaffective disorder, unspecified; K29.70 Gastritis, unspecified, without bleeding; Z20.822 Contact with and (suspected) exposure to COVID-19; X58.XXXA Exposure to other specified factors, initial encounter; Y93.9 Activity, unspecified; F41.9 Anxiety disorder, unspecified; F32.9 Major depressive disorder, single episode, unspecified; F29 Unspecified psychosis not due to a substance or known physiological condition; F15.90 Other stimulant use, unspecified, uncomplicated; Y92.89 Other specified places as the place of occurrence of the external cause
CPT/HCPCS: 36415; 71045-TC; 71260-TC; 74018; 80048-TC; 80053-TC; 80076-TC; 80164-TC; 83735-TC; 84100-TC; 85025-TC; 85610-TC; 85730-TC; 87081-TC; C9803; G0378; J0330; J2060; J2270; J2405; J2704; J3490; J7030; J7050; J7060; Q9967; U0003

== ENCOUNTER 2021-06-10 15:13 | Inpatient (IN) | payer MEDICAID ==
[~2021-06-10] VITALS: Ht 175.3 cm; Wt 103.4 kg
[~2021-06-10 15:13] MED LIST changes: +ALPR2TAB2 PO; +BUSP5TAB3 PO; +DIVA-78 PO; -HYDR-4354; +WELLBUTRIN; +ZIPR40CA2 PO
--- NOTE | 2021-06-10 15:25 | NUR ---
The patient [id number], from [facility], swallowed a pencil 1 hr MAILING JOGGER, rates abdominal pain 6/10. Abdomen soft and non-distended. In room air and denies SOB. Respiration regular and unlabored. Will continue to monitor the patient.
--- NOTE | 2021-06-10 16:21 | NUR ---
CALLED FOR GI CONSULT DR. LUZ, SPEAKING WITH DR. JONES.
--- NOTE | 2021-06-10 16:30 | NUR ---
MOVE SHEET SUBMITTED AND CALLED FOR BED.
--- NOTE | 2021-06-10 16:59 | NUR ---
COVID SWAB DONE AND SENT TO THE LAB
[2021-06-10] MEDS ORDERED: ONDANSETRON HCL/PF - ER 4 MG/2 ML VIAL IV ONE (17:00)
[2021-06-10] MEDS ORDERED: TEMA15CA PO (17:03)
[2021-06-10] MEDS ORDERED: ESCI5TAB PO (17:03)
[2021-06-10] MEDS ORDERED: IBUP-1957 PO (17:03)
[2021-06-10] MEDS ORDERED: LORA-259 PO (17:03)
[2021-06-10] MEDS ORDERED: TRAM50TA2 PO (17:03)
[2021-06-10] MEDS ORDERED: HYDR-3980 PO (17:03)
[2021-06-10] MEDS ORDERED: ONDANSETRON HCL/PF 4 MG/2 ML VIAL ONE (17:19)
[2021-06-10 17:22] LABS: BASOPHILS # (AUTO) 0.1 K/uL (0.0-0.2); BASOPHILS % (AUTO) 0.7 % (0.0-2.0); EOSINOPHILS % (AUTO) 1.6 % (0.0-6.0); HEMATOCRIT 40 % (39-51); HEMOGLOBIN 12.8 g/dL (13.5-17.5); LYMPHOCYTES # (AUTO) 2.4 K/uL (0.8-4.8); LYMPHOCYTES % (AUTO) 19.4 % (20.0-44.0); MEAN CORPUSCULAR HGB CONC 32 g/dl (31.0-36.0); MEAN CORPUSCULAR VOLUME 91 fL (80-96); MONOCYTES # (AUTO) 1.1 K/uL (0.1-1.30); MONOCYTES % (AUTO) 8.6 % (2.0-12.0); NEUTROPHILS # (AUTO) 8.6 K/uL (1.8-8.9); NEUTROPHILS % (AUTO) 69.7 % (43.0-81.0); PLATELET COUNT (AUTO) 311 K/uL (150-450); RED BLOOD CELL COUNT(AUTO) 4.37 MIL/uL (4.5-6.0); WHITE BLOOD COUNT (AUTO) 12.4 K/uL (4.3-11.0)
[2021-06-10 17:35] LABS: CALCIUM, SERUM 8.9 mg/dL (8.5-10.1); CREATININE 0.8 mg/dL (0.6-1.3); POTASSIUM 3.9 mmol/L (3.5-5.1)
--- NOTE | 2021-06-10 17:39 | NUR ---
Requested bed from nursing sup
[2021-06-10] MEDS ORDERED: ANESTHESIA TRAY IN PYXIS 1 EA TRAY MC ONE (17:57)
[2021-06-10] MEDS ORDERED: Z GUARD REMEDY 2 OZ OINT TP PRN (18:00)
[2021-06-10] MEDS ORDERED: MAGNESIUM HYDROXIDE 30 ML UDC PO PRN (18:00)
[2021-06-10] MEDS ORDERED: MAG HYDROX/AL HYDROX/SIMETH 30 ML UDC PO PRN (18:00)
[2021-06-10] MEDS ORDERED: ACETAMINOPHEN 325 MG TABLET PO PRN (18:00)
[2021-06-10] MEDS ORDERED: ONDANSETRON HCL/PF 4 MG/2 ML VIAL IVP PRN (18:00)
[2021-06-10] MEDS ORDERED: SUCCINYLCHOLINE CHLORIDE 20 MG/ML VIAL ONE (18:01)
--- NOTE | 2021-06-10 18:10 | NUR ---
wheeled patient to surgery for EGD.
--- NOTE | 2021-06-10 18:29 | NUR ---
Report given to nurse [place] from [facility].
--- NOTE | 2021-06-10 19:30 | NUR ---
RN NOTE PT BROUGHT VIA GURNEY FROM OR FOR SWALLOWING PENCIL. PENCIL WAS REMOVED DURING SURGERY. PT IS STABLE. VSS. PT IS A/OX3-4. CURRENTLY ON ROOM AIR SHOWING NO S/S OF RESP DISTRESS/SOB. BREATHING EVEN AND UNLABORED. IV LINE ON RIGHT AC GAUGE 18 NOTED. LINE FLUSHED, PATENT, AND INTACT WITH NO SIGNS OF INFILTRATION. ALL SAFETY MEASURES IMPLEMENTED. CALL LIGHT WITHIN REACH. BED ALARM ON. BED LOCKED AND IN LOWEST POSITION. WILL CONTINUE TO MONITOR THROUGHOUT THE SHIFT AND ASSESS FOR ANY CHANGES.
[2021-06-10 20:00] VITALS: BP 110/63
--- NOTE | 2021-06-10 20:29 | NUR ---
RN NOTE PER MD ORDER, OKAY TO D/C NPO DIET AND HAVE PATIENT BE ON REGULAR DIET.
[2021-06-10] MEDS: HYDROCODONE/APAP 5/325MG TABLET PO PRN (23:17)
[2021-06-11] MEDS: LORAZEPAM INJ 2 MG/ML VIAL IV PRN ×3 (02:08→13:41)
[2021-06-11 04:00] VITALS: BP 104/53
[2021-06-11] MEDS: HYDROCODONE/APAP 5/325MG TABLET PO PRN ×2 (06:24→08:15)
--- NOTE | 2021-06-11 06:38 | NUR ---
RN NOTE NO CHANGES IN PT CONDITION DURING SHIFT. PT IS STABLE. VSS. PT IS A/OX3-4. CURRENTLY ON ROOM AIR SHOWING NO S/S OF RESP DISTRESS/SOB. BREATHING EVEN AND UNLABORED. PT IS AMBULATORY. IV LINE ON RIGHT AC GAUGE 18 NOTED. LINE FLUSHED, PATENT, AND INTACT WITH NO SIGNS OF INFILTRATION. ALL DUE MEDS GIVEN ORDERED. PT KEPT CLEAN AND COMFORTABLE. ALL SAFETY MEASURES IMPLEMENTED. CALL LIGHT WITHIN REACH. BED ALARM ON. BED LOCKED AND IN LOWEST POSITION. WILL CONTINUE TO MONITOR THROUGHOUT THE SHIFT AND ASSESS FOR ANY CHANGES.
[2021-06-11 06:51] LABS: BASOPHILS # (AUTO) 0.1 K/uL (0.0-0.2); BASOPHILS % (AUTO) 0.8 % (0.0-2.0); EOSINOPHILS % (AUTO) 2.7 % (0.0-6.0); HEMATOCRIT 42 % (39-51); HEMOGLOBIN 13.8 g/dL (13.5-17.5); LYMPHOCYTES # (AUTO) 1.4 K/uL (0.8-4.8); LYMPHOCYTES % (AUTO) 17.2 % (20.0-44.0); MEAN CORPUSCULAR HGB CONC 33 g/dl (31.0-36.0); MEAN CORPUSCULAR VOLUME 92 fL (80-96); MONOCYTES # (AUTO) 0.8 K/uL (0.1-1.30); MONOCYTES % (AUTO) 9.5 % (2.0-12.0); NEUTROPHILS # (AUTO) 5.9 K/uL (1.8-8.9); NEUTROPHILS % (AUTO) 69.8 % (43.0-81.0); PLATELET COUNT (AUTO) 319 K/uL (150-450); RED BLOOD CELL COUNT(AUTO) 4.54 MIL/uL (4.5-6.0); WHITE BLOOD COUNT (AUTO) 8.4 K/uL (4.3-11.0)
[2021-06-11 07:42] LABS: CALCIUM, SERUM 8.8 mg/dL (8.5-10.1); CREATININE 0.8 mg/dL (0.6-1.3); PHOSPHORUS 4.2 mg/dL (2.5-4.9); POTASSIUM 4.5 mmol/L (3.5-5.1)
[2021-06-11 13:14] VITALS: BP 116/80
--- NOTE | 2021-06-11 14:23 | NUR ---
RN NOTES RECEIVED PATIENT RESTING IN BED, WOKE UP ABOUT 15 MIN INTO AM SHIFT, REQUESTED TO GO AND SMOKE, AUTOMOTIVE GLAZIER ASSISTED TO HELP AMBULATE OUT TO AREA DESIGNATED FOR SMOKING, STEADY GAIT, HAD SOME ANXIETY NOTED, PT IIN STABLE CONDITION AND ABLE TO MAKE NEEDS KNOW, VSS IN HIS NORMAL BASE LINE RANGE PT IS A/OX4. ROOM AIR SAT FLUCTUATING BETWEEN 96-98% , SHOWING NO S/S OF RESP DISTRESS/SOB. BREATHING EVEN AND UNLABORED. PT IS AMBULATORY. IV LINE ON RIGHT AC GAUGE 18 NOTED. LINE FLUSHED, PATENT, AND INTACT WITH NO SIGNS OF INFILTRATION. ALL DUE MEDS GIVEN ORDERED INCLUDING THE PRN MEDICATIONS, PT KEPT CLEAN AND COMFORTABLE. ALL SAFETY MEASURES IMPLEMENTED. CALL LIGHT WITHIN REACH. BED ALARM ON. BED LOCKED AND IN LOWEST POSITION. WILL CONTINUE TO MONITOR THROUGHOUT THE SHIFT AND ASSESS FOR ANY CHANGES.
--- NOTE | 2021-06-11 14:28 | NUR ---
RN NOTES 12 NOON PATIENT REQUESETED TO TAKE A SHOWER WITH [employer] ASSISTANCE TOOK SHOWER, WAS ABLE TO CLEAN SELF AND AMBULATE STEADY, REQUESTED PRN MEDICATION OF ATIVAN GIVEN NO SIDE EFFECTS NOTED, NO SOB AND NO DISTRESS, TOLERATED MEDICATION , MADE ORDER TO D/C PATIENT BACK TO [facility] FOR CARE AND A PSYCH EVALUATION, , I TOOK THE TIME TO PRAY WITH HIM AND DISCUSS WHY HE KEEPS SWALLOWING OBJECTS, I TOLD HIM HE REALLY DOES NOT WANT TO AND ENCOURAGED HIM TO BELIEVE IN HIMSELF THAT HE CAN DO GREAT THINGS AND THAT HE CAN EITHER CHOOSE TO GO DOWN THIS ROAD OF PAIN AND SUFFERING OR HE CAN CHOOSE TO LIVE HIS LIFE FREE FROM THIS STRANGE BEHAVIOR OF MAKING HIMSELF SUFFER, I DO BELIEVE I STRUCK A CHORD INSIDE HIS SOUL TO MAKE HIM THINK ABOUT MAKING A CHANGE FOR THE GREATER OF THE GOOD FOR HIS OWN SAKE, WE PRAYED AND HE CRIED AND SAID " I WILL TRY TO DO BETTER WITH MY SELF" I SAID GREAT DO IT FOR YOURSELF, YOUR FAMILY AND FOR GODS SAKE HE CAN DO GOOD THINGS IF HE WILL JUST TRY.
--- NOTE | 2021-06-11 14:32 | NUR ---
RN NOTES 4109 PATIENT D/C TO [facility] , IV D/C FROM LEFT AC AREA, NO S/S OF ANY INFLAMMATION, NO REDNESS NOTED, SAFE TRANSFER FROM BED TO WHEELCHAIR AND TAKEN TO VEHICLE TRANSPORT OUT FRONT, RN NOTIFIED AND FAGOTING MACHINE OPERATOR , APPROVED THE D/C AND TRANSFER OUT TO SNF. EDUCATED ON IMPORTANCE OF SELF CARE AND ACCEPTANCE OF SELF AND TO TRY TO LEARN TO LOVE SELF, GIVEN PRINT OUT GUIDES FOR FUTURE HELP TO MEDITATE AND TRY TO CARE FOR SELF, EXPRESSED UNDERSTANDING OF THIS AND WILLING TO PARTICIPATE, NOTIFIED AND FAMILY AWARE PATIENT TRANSFERRED OUT TO SNF AND HAS BEEN D/C FROM HOSPITAL WITH ALL BELONGINGS AT THIS TIME.
== END 2021-06-11 14:15 | DRG 254 ==
LOC: ER 15:15 → MEDSG1 18:08
PROVIDERS: ADMIT Internal Medicine; ATTEND Internal Medicine
PROC: 0DC68ZZ Extirpation of Matter from Stomach, Via Natural or Artificial Opening Endoscopic (ICD-10-PCS; principal; 2021-06-10)
DX: T18.2XXA Foreign body in stomach, initial encounter (principal); R45.851 Suicidal ideations; F29 Unspecified psychosis not due to a substance or known physiological condition; Z20.822 Contact with and (suspected) exposure to COVID-19; F20.9 Schizophrenia, unspecified; F32.9 Major depressive disorder, single episode, unspecified; X58.XXXA Exposure to other specified factors, initial encounter; Y92.238 Other place in hospital as the place of occurrence of the external cause
CPT/HCPCS: 36415; 74021; 80048-TC; 84100-TC; 85025-TC; 85730-TC; 87081-TC; C9803; G0378; J0330; J2060; J2405; J2704; J3490; J7030